=== PATIENT | male | born 1950 | race Caucasian/White ===

== ENCOUNTER 2017-07-23 15:09 | Inpatient (IN) | payer OTHER ==
[~2017-07-23] VITALS: Ht 177.8 cm; Wt 100.2 kg
[~2017-07-23 15:09] MED LIST: ASPI81EC; ATENOL/CHLOR; BLOOD PRESSURE MED?; DOC250 PO; FURO40; HYDACE5 PO; IBUPROFEN 400 MG; LEVFLO500 PO; METF500 PO; OMEGA 3; OMEP20ER PO; OXYACE5T PO; POTCHL20ER; ROSU10TA PO; RXOXYACE PO
[2017-07-23] MEDS ORDERED: GLIM4 (15:29)
[2017-07-23] MEDS ORDERED: POTCHL10ER (15:29)
[2017-07-23] MEDS ORDERED: METO50ER (15:29)
[2017-07-23] MEDS ORDERED: ATOR40TA (15:29)
[2017-07-23 15:43] LABS: BASOPHILS ABSOLUTE AUTO 0.08 K/mm3 (0.00-0.23); BASOPHILS PERCENT AUTO 1 % (0-2); EOSINOPHILS ABSOLUTE AUTO 0.39 K/mm3 (0.00-0.68); EOSINOPHILS PERCENT AUTO 4 % (0-6); Hematocrit 38.7 % (37.0-53.0); Hemoglobin 12.8 g/dL (13.5-17.5); IMMATURE GRAN ABSOLUTE AUTO 0.06 K/mm3 (0.00-0.10); IMMATURE GRAN PERCENT AUTO 1 % (0-1); LYMPHOCYTES PERCENT AUTO 31 % (21-46); MONOCYTES ABSOLUTE AUTO 0.65 K/mm3 (0.16-1.47); MONOCYTES PERCENT AUTO 6 % (4-13); Mean Corpuscular HGB 27.5 pg (26.0-34.0); Mean Corpuscular HGB Conc 33.1 g/dL (31.5-36.5); Mean Corpuscular Volume 83 fL (80-100); Mean Platelet Volume 11.1 fL (9.1-12.4); NEUTROPHILS ABSOLUTE AUTO 5.85 K/mm3 (1.96-9.15); NEUTROPHILS PERCENT AUTO 58 % (41-73); Platelet Count 270 K/mm3 (150-400); RDW Coefficient Variation 12.8 % (11.7-14.2); RDW Standard Deviation 38.5 fL (35.1-46.3); Red Blood Cell Count 4.65 M/mm3 (4.30-5.90); White Blood Cell Count 10.13 K/mm3 (4.00-11.30)
[2017-07-23 16:07] LABS: Alanine Aminotransfer (ALT/SGP 34 U/L (12-78); Albumin, Blood 4.2 g/dL (3.4-5.0); Albumin/Globulin Ratio 1.1 (0.8-1.8); Alk Phos 163 U/L (50-136); Anion Gap 10 mmol/L (6-16); Aspartate Aminotrans (AST/SGOT 16 U/L (12-37); Bilirubin, Total 0.4 mg/dL (0.1-1.0); Blood Urea Nitrogen 26 mg/dL (8-24); Bun/Creatinine Ratio 23.2 (12.0-20.0); CO2, Blood 28 mmol/L (21-32); Calcium, Blood 9.4 mg/dL (8.5-10.1); Chloride, Blood 99 mmol/L (98-108); Creatinine, Blood 1.12 mg/dL (0.60-1.20); Globulin, Blood 3.7 g/dL (2.2-4.0); Glomerular Filtration Rate >60 (60-); Glucose, Blood 156 mg/dL (70-99); Sodium, Blood 137 mmol/L (136-145); Total Protein, Blood 7.9 g/dL (6.4-8.2); Troponin I <0.015 ng/mL (0.000-0.040)
[2017-07-23 17:25] LABS: Source, Urine Clean Catch
[2017-07-23 17:33] LABS: Bilirubin, Urine Neg (Neg); Blood, Urine Neg (Neg); Glucose Qualitative, Urine Neg (Neg); Ketones, Urine Neg (Neg); Leukocyte Esterase, Urine Neg (Neg); Nitrite, Urine Neg (Neg); Protein, Urine Neg (Neg); Urobilinogen, Urine NORM (Normal)
[2017-07-23 18:02] LABS: Appearance, Urine Clear (Clear); Color, Urine Yellow (P-Yellow)
[2017-07-24 02:23] LABS: CHOL/HDL RATIO 6.6; Cholesterol 191 mg/dL (50-200); HDL Cholesterol 29 mg/dL (>39); LDL/HDL RATIO Unable to Calculate; Low Density Lipoprotein Chol Unable to Calculate mg/dL (0-110); Triglycerides 593 mg/dL (30-160); Troponin I 0.024 ng/mL (0.000-0.040); Very Low Density Lipoprot Chol Unable to Calculate mg/dL (6-32)
[2017-07-24 11:47] LABS: International Normalized Ratio 1.07; Prothrombin Time Results 11.1 Sec (9.7-11.5)
[2017-07-24 16:14] LABS: Mean Platelet Volume 10.8 fL (9.1-12.4); Platelet Count 237 K/mm3 (150-400)
[2017-12-18] MEDS ORDERED: Metoprolol Succ25 MG PO (07:50)
== END 2017-07-24 16:57 | disposition short-term general hospital (02) | DRG 287 ==
LOC: ER 15:09 → MEDS 16:46 → PCU 07-24 15:14
PROVIDERS: Emergency Medicine; Hospitalist; Internal Medicine Interventional Cardiology
PROC: 4A023N7 Measurement of Cardiac Sampling and Pressure, Left Heart, Percutaneous Approach (ICD-10-PCS; principal; 2017-07-24)
PROC: B2111ZZ Fluoroscopy of Multiple Coronary Arteries using Low Osmolar Contrast (ICD-10-PCS; 2017-07-24)
DX: I25.110 Atherosclerotic heart disease of native coronary artery with unstable angina pectoris (principal); E11.65 Type 2 diabetes mellitus with hyperglycemia; E78.1 Pure hyperglyceridemia; E78.5 Hyperlipidemia, unspecified; I10 Essential (primary) hypertension; E66.9 Obesity, unspecified; K46.9 Unspecified abdominal hernia without obstruction or gangrene; Z68.31 Body mass index [BMI] 31.0-31.9, adult
CPT/HCPCS: 36415; 71046; 80053; 80061; 81003; 82947; 83036; 83880; 84484; 85025; 85049; 85610; 85730; 93005; 93010; 93458; 99152; 99153; 99285; C1769; C1894; J1644; J1815; J2250; J3010; J7030; J7040; Q9967

== ENCOUNTER 2017-09-04 11:04 | Emergency (ER) | payer OTHER ==
[~2017-09-04] VITALS: Ht 177.8 cm; Wt 93.9 kg
[~2017-09-04 11:04] MED LIST changes: +ATOR40TA; +GLIM4; +METO50ER; +POTCHL10ER
[2017-09-04 13:26] LABS: BASOPHILS ABSOLUTE AUTO 0.08 K/mm3 (0.00-0.23); BASOPHILS PERCENT AUTO 1 % (0-2); EOSINOPHILS ABSOLUTE AUTO 0.26 K/mm3 (0.00-0.68); EOSINOPHILS PERCENT AUTO 2 % (0-6); Hematocrit 29.3 % (37.0-53.0); Hemoglobin 9.1 g/dL (13.5-17.5); IMMATURE GRAN ABSOLUTE AUTO 0.04 K/mm3 (0.00-0.10); IMMATURE GRAN PERCENT AUTO 0 % (0-1); LYMPHOCYTES ABSOLUTE AUTO 3.13 K/mm3 (0.84-5.20); LYMPHOCYTES PERCENT AUTO 27 % (21-46); MONOCYTES PERCENT AUTO 9 % (4-13); Mean Corpuscular HGB 25.6 pg (26.0-34.0); Mean Corpuscular HGB Conc 31.1 g/dL (31.5-36.5); Mean Corpuscular Volume 82 fL (80-100); Mean Platelet Volume 11.1 fL (9.1-12.4); NEUTROPHILS ABSOLUTE AUTO 7.29 K/mm3 (1.96-9.15); NEUTROPHILS PERCENT AUTO 62 % (41-73); Platelet Count 426 K/mm3 (150-400); RDW Coefficient Variation 16.1 % (11.7-14.2); RDW Standard Deviation 49.3 fL (35.1-46.3); Red Blood Cell Count 3.56 M/mm3 (4.30-5.90)
[2017-09-04 13:47] LABS: Anion Gap 7 mmol/L (6-16); Blood Urea Nitrogen 12 mg/dL (8-24); Bun/Creatinine Ratio 13.3 (12.0-20.0); CO2, Blood 34 mmol/L (21-32); Calcium, Blood 8.5 mg/dL (8.5-10.1); Chloride, Blood 95 mmol/L (98-108); Glomerular Filtration Rate >60 (60-); Glucose, Blood 96 mg/dL (70-99); Magnesium, Blood 1.5 mg/dL (1.6-2.4); Potassium, Blood 3.3 mmol/L (3.5-5.5); Sodium, Blood 136 mmol/L (136-145)
[2017-09-04] MEDS ORDERED: Toprol Xl50 MG PO (14:52)
[2017-09-04] MEDS ORDERED: Percocet 5-3251 EACH PO (14:52)
== END 2017-09-04 16:00 | disposition home or self-care (01) ==
LOC: ER 11:04
PROVIDERS: Emergency Medicine
DX: S16.1XXA Strain of muscle, fascia and tendon at neck level, initial encounter (principal); I48.91 Unspecified atrial fibrillation; E87.6 Hypokalemia; E83.42 Hypomagnesemia; I10 Essential (primary) hypertension; E11.9 Type 2 diabetes mellitus without complications; E78.5 Hyperlipidemia, unspecified; Z88.8 Allergy status to other drugs, medicaments and biological substances; Z79.899 Other long term (current) drug therapy; Z79.84 Long term (current) use of oral hypoglycemic drugs; W01.198A Fall on same level from slipping, tripping and stumbling with subsequent striking against other object, initial encounter
CPT/HCPCS: 72040; 80048; 83735; 85025; 93005; 93010; 96365; 99284; J3475

== ENCOUNTER 2017-09-08 13:46 | Observation (INO) | payer OTHER ==
[~2017-09-08] VITALS: Ht 172.7 cm; Wt 93.2 kg
[~2017-09-08 13:46] MED LIST changes: +Percocet 5-3251 EACH PO; +Toprol Xl50 MG PO
[2017-09-08 14:52] LABS: BASOPHILS ABSOLUTE AUTO 0.11 K/mm3 (0.00-0.23); BASOPHILS PERCENT AUTO 1 % (0-2); EOSINOPHILS ABSOLUTE AUTO 0.42 K/mm3 (0.00-0.68); EOSINOPHILS PERCENT AUTO 4 % (0-6); Hematocrit 33.5 % (37.0-53.0); Hemoglobin 10.1 g/dL (13.5-17.5); IMMATURE GRAN ABSOLUTE AUTO 0.04 K/mm3 (0.00-0.10); IMMATURE GRAN PERCENT AUTO 0 % (0-1); LYMPHOCYTES ABSOLUTE AUTO 3.08 K/mm3 (0.84-5.20); LYMPHOCYTES PERCENT AUTO 32 % (21-46); MONOCYTES PERCENT AUTO 7 % (4-13); Mean Corpuscular HGB Conc 30.1 g/dL (31.5-36.5); Mean Corpuscular Volume 83 fL (80-100); Mean Platelet Volume 10.4 fL (9.1-12.4); NEUTROPHILS ABSOLUTE AUTO 5.19 K/mm3 (1.96-9.15); NEUTROPHILS PERCENT AUTO 54 % (41-73); Platelet Count 485 K/mm3 (150-400); RDW Coefficient Variation 16.1 % (11.7-14.2); RDW Standard Deviation 49.1 fL (35.1-46.3); Red Blood Cell Count 4.04 M/mm3 (4.30-5.90); White Blood Cell Count 9.54 K/mm3 (4.00-11.30)
[2017-09-08 15:20] LABS: Alanine Aminotransfer (ALT/SGP 30 U/L (12-78); Albumin, Blood 3.1 g/dL (3.4-5.0); Albumin/Globulin Ratio 0.6 (0.8-1.8); Alk Phos 271 U/L (50-136); Anion Gap 10 mmol/L (6-16); Aspartate Aminotrans (AST/SGOT 22 U/L (12-37); Bilirubin, Total 0.5 mg/dL (0.1-1.0); Blood Urea Nitrogen 20 mg/dL (8-24); Bun/Creatinine Ratio 19.4 (12.0-20.0); CO2, Blood 30 mmol/L (21-32); Chloride, Blood 98 mmol/L (98-108); Creatinine, Blood 1.03 mg/dL (0.60-1.20); Globulin, Blood 5.3 g/dL (2.2-4.0); Glomerular Filtration Rate >60 (60-); Glucose, Blood 94 mg/dL (70-99); Potassium, Blood 3.8 mmol/L (3.5-5.5); Sodium, Blood 138 mmol/L (136-145); Total Protein, Blood 8.4 g/dL (6.4-8.2)
[2017-09-08 15:38] LABS: Digoxin (Lanoxin) 0.81 ug/mL (0.80-2.00); Troponin I 0.044 ng/mL (0.000-0.040)
[2017-09-08] MEDS ORDERED: ASPI81CH PO (17:16)
[2017-09-08] MEDS ORDERED: SENN187 PO (17:16)
[2017-09-08] MEDS ORDERED: PANT40 PO (17:16)
[2017-09-08] MEDS ORDERED: METF500 PO (17:18)
[2017-09-08] MEDS ORDERED: ELIQUIS5 MG PO (17:18)
[2017-09-08] MEDS ORDERED: FURO20 PO (17:18)
[2017-09-08] MEDS ORDERED: OXYC5 (17:21)
[2017-09-08] MEDS ORDERED: GABA400 PO (17:22)
[2017-09-08] MEDS ORDERED: ATORVASTATIN CA40 MG PO (17:22)
[2017-09-08] MEDS ORDERED: GLIM4 PO (17:22)
[2017-09-08] MEDS ORDERED: DIGOX125 MCG PO (17:23)
[2017-09-08] MEDS ORDERED: GUAI600T33 PO (17:23)
[2017-09-08] MEDS ORDERED: METO50ER PO (20:49)
[2017-09-08] MEDS ORDERED: Omeprazole20 M1 (20:54)
[2017-09-08] MEDS ORDERED: POTCHL10ER PO (20:55)
[2017-09-09] MEDS ORDERED: DILTIAZEM 24HR240 M1 PO (16:42)
== END 2017-09-09 17:25 | disposition home or self-care (01) ==
LOC: ER 13:46 → MEDS 13:47
PROVIDERS: Emergency Medicine
DX: I48.91 Unspecified atrial fibrillation (principal); I95.9 Hypotension, unspecified; I10 Essential (primary) hypertension; E11.65 Type 2 diabetes mellitus with hyperglycemia; E78.00 Pure hypercholesterolemia, unspecified; I25.10 Atherosclerotic heart disease of native coronary artery without angina pectoris; Z79.84 Long term (current) use of oral hypoglycemic drugs; Z88.8 Allergy status to other drugs, medicaments and biological substances; Z79.01 Long term (current) use of anticoagulants; Z95.1 Presence of aortocoronary bypass graft; Z79.82 Long term (current) use of aspirin; Z79.899 Other long term (current) drug therapy
CPT/HCPCS: 36415; 71046; 80053; 80162; 82947; 83880; 84484; 85025; 93005; 93010; 96374; 99285; G0378

== ENCOUNTER 2017-11-27 06:52 | Day surgery (SDC) | payer OTHER ==
[~2017-11-27] VITALS: Ht 177.8 cm; Wt 95.5 kg
[~2017-11-27 06:52] MED LIST changes: +ASPI81CH PO; +ATORVASTATIN CA40 MG PO; +DIGOX125 MCG PO; +DILTIAZEM 24HR240 M1 PO; +ELIQUIS5 MG PO; +FURO20 PO; +GABA400 PO; +GLIM4 PO; +GUAI600T33 PO; +METO50ER PO; +OXYC5; +Omeprazole20 M1; +PANT40 PO; +POTCHL10ER PO; +SENN187 PO
== END 2017-11-27 10:58 | disposition home or self-care (01) ==
LOC: ORSCSDS 06:52
PROVIDERS: Podiatrist Foot & Ankle Surgery
PROC: 0Y6Q0Z2 Detachment at Left 1st Toe, Mid, Open Approach (ICD-10-PCS; principal; 2017-11-27 08:30)
PROC: 0Y6M0Z4 Detachment at Right Foot, Complete 1st Ray, Open Approach (ICD-10-PCS; principal; 2017-11-27 08:30)
PROC: 0Y6N0Z6 Detachment at Left Foot, Complete 3rd Ray, Open Approach (ICD-10-PCS; principal; 2017-11-27 08:30)
PROC: 0Y6M0Z7 Detachment at Right Foot, Complete 4th Ray, Open Approach (ICD-10-PCS; principal; 2017-11-27 08:30)
DX: I96 Gangrene, not elsewhere classified (principal); L97.528 Non-pressure chronic ulcer of other part of left foot with other specified severity; L97.518 Non-pressure chronic ulcer of other part of right foot with other specified severity; M86.171 Other acute osteomyelitis, right ankle and foot; M86.172 Other acute osteomyelitis, left ankle and foot; L97.509 Non-pressure chronic ulcer of other part of unspecified foot with unspecified severity; I10 Essential (primary) hypertension; E78.5 Hyperlipidemia, unspecified; I25.10 Atherosclerotic heart disease of native coronary artery without angina pectoris; Z87.891 Personal history of nicotine dependence; E10.40 Type 1 diabetes mellitus with diabetic neuropathy, unspecified; Z79.01 Long term (current) use of anticoagulants; Z79.82 Long term (current) use of aspirin; Z79.84 Long term (current) use of oral hypoglycemic drugs; Z79.899 Other long term (current) drug therapy
CPT/HCPCS: 82947; J0690; J2250; J2405; J3010; J7120

== ENCOUNTER → 2018-07-14 | Outpatient (CLI) | payer OTHER ==
[~2018-07-14] MED LIST changes: +Metoprolol Succ25 MG PO
[2018-07-14 13:59] LABS: Anion Gap 8 mmol/L (6-16); Blood Urea Nitrogen 23 mg/dL (8-24); Bun/Creatinine Ratio 20.2 (12.0-20.0); CO2, Blood 30 mmol/L (21-32); Calcium, Blood 9.6 mg/dL (8.5-10.1); Chloride, Blood 103 mmol/L (98-108); Creatinine, Blood 1.14 mg/dL (0.60-1.20); Glomerular Filtration Rate >60 (60-); Glucose, Blood 122 mg/dL (70-99); Potassium, Blood 4.2 mmol/L (3.5-5.5); Sodium, Blood 141 mmol/L (136-145)
== END | disposition home or self-care (01) ==
LOC: LAB SHORT 13:13 → LAB 13:13
PROVIDERS: Hospitalist
DX: I10 Essential (primary) hypertension (principal)
CPT/HCPCS: 80048

== ENCOUNTER → 2019-05-07 | Outpatient (CLI) | payer OTHER ==
[2019-05-07 16:30] LABS: Cholesterol 220 mg/dL (50-200); HDL Cholesterol 44 mg/dL (>39); LDL/HDL RATIO Unable to Calculate; Low Density Lipoprotein Chol Unable to Calculate mg/dL (0-110); Triglycerides 510 mg/dL (30-160); Very Low Density Lipoprot Chol Unable to Calculate mg/dL (6-32)
== END ==
LOC: LAB 11:42 → LAB SHORT 11:42
PROVIDERS: Hospitalist
DX: E11.65 Type 2 diabetes mellitus with hyperglycemia (principal)
CPT/HCPCS: 80061; 82043; 83036

== ENCOUNTER → 2020-11-22 | Outpatient (CLI) | payer OTHER | END | disposition home or self-care (01) | LOC: LAB SHORT 15:50 | DX: E78.5 Hyperlipidemia, unspecified (principal) | CPT/HCPCS: 82043 ==

== ENCOUNTER 2022-05-22 21:49 | Inpatient (IN) | payer OTHER ==
[~2022-05-22] VITALS: Ht 172.7 cm; Wt 104.0 kg
[~2022-05-22 21:49] MED LIST changes: -Metoprolol Succ25 MG PO; +POTA10T PO; -POTCHL10ER PO
[2022-05-22 22:11] LABS: BASOPHILS ABSOLUTE AUTO 0.09 K/mm3 (0.00-0.23); BASOPHILS PERCENT AUTO 1 % (0-2); EOSINOPHILS ABSOLUTE AUTO 0.43 K/mm3 (0.00-0.68); EOSINOPHILS PERCENT AUTO 5 % (0-6); Hematocrit 33.4 % (37.0-53.0); Hemoglobin 11.2 g/dL (13.5-17.5); IMMATURE GRAN ABSOLUTE AUTO 0.05 K/mm3 (0.00-0.10); IMMATURE GRAN PERCENT AUTO 1 % (0-1); LYMPHOCYTES ABSOLUTE AUTO 3.45 K/mm3 (0.84-5.20); LYMPHOCYTES PERCENT AUTO 38 % (21-46); MONOCYTES ABSOLUTE AUTO 0.73 K/mm3 (0.16-1.47); MONOCYTES PERCENT AUTO 8 % (4-13); Mean Corpuscular HGB 28.5 pg (26.0-34.0); Mean Corpuscular HGB Conc 33.5 g/dL (31.5-36.5); Mean Corpuscular Volume 85 fL (80-100); Mean Platelet Volume 11.8 fL (9.1-12.4); NEUTROPHILS ABSOLUTE AUTO 4.38 K/mm3 (1.96-9.15); NEUTROPHILS PERCENT AUTO 48 % (41-73); Platelet Count 267 K/mm3 (150-400); RDW Coefficient Variation 13.2 % (11.7-14.2); RDW Standard Deviation 41.4 fL (35.1-46.3); Red Blood Cell Count 3.93 M/mm3 (4.30-5.90); White Blood Cell Count 9.13 K/mm3 (4.00-11.30)
[2022-05-22 22:36] LABS: Albumin, Blood 3.7 g/dL (3.4-5.0); Bilirubin, Total 0.2 mg/dL (0.1-1.0); Bun/Creatinine Ratio 13.7 (12.0-20.0); Calcium, Blood 8.8 mg/dL (8.5-10.1); Creatinine, Blood 1.68 mg/dL (0.60-1.20); Globulin, Blood 3.6 g/dL (2.2-4.0); Potassium, Blood 4.2 mmol/L (3.5-5.5); Total Protein, Blood 7.3 g/dL (6.4-8.2)
[2022-05-22] MEDS ORDERED: TRULANCE3 MG PO (22:56)
[2022-05-23 02:48] LABS: Cholesterol 192 mg/dL (50-200); HDL Cholesterol 32 mg/dL (>39); LDL/HDL RATIO Unable to Calculate; Low Density Lipoprotein Chol Unable to Calculate mg/dL (0-110); Triglycerides 491 mg/dL (30-160); Very Low Density Lipoprot Chol Unable to Calculate mg/dL (6-32)
[2022-05-23 03:31] LABS: Anti-Xa UFH, PHA Monitoring <0.10 IU/mL; International Normalized Ratio 1.05
--- NOTE | 2022-05-23 04:16 | NUR ---
TRANSFER NOTE/PATIENT UPDATE REPORT TAKEN VIA PHONE FROM FRED MACK IN THE ED. PATIENT TRANSFERRED TO U 15 AT 0225. PATIENT WAS ABLE TO TRANSFER VIA SBA TO BED FROM [facility]. PATIENT DENIES CHEST PAIN/PRESSURE AND STATES HE IS NOT HAVING ANY PAIN. MOST RECENT TROPONIN OF 1387. PATIENT DENIES SOB; CLEAR LUNG SOUNDS AUSCULTATED THROUGHOUT. PATIENT SHOWING ATRIAL FLUTTER/FIBRILLATION ON THE MONITOR WITH HR 80-100; PATIENT REPORTS HISTORY OF GOING IN/OUT OF AFIB; DENIES FEELINGS OF PALPATION. BP STABLE. AFEBRILE. ON RA WITH SPO2 >94%. PATIENT REPORTS HISTORY OF ALLERGY TO [facility]. MD PAULINO WITH NEW ORDERS FOR BIVALIRUDIN INFUSION. PATIENT REMAINS NPO. CALLING APPROPRIATELY AND ABLE TO MAKE NEEDS KNOWN; THIS RN WILL CONTINUE TO MONITOR AND PROVIDE INTERVENTIONS NEEDED/ORDERED UNTIL SHIFT CHANGE AT 0700.
[2022-05-23 05:09] LABS: BASOPHILS ABSOLUTE AUTO 0.09 K/mm3 (0.00-0.23); BASOPHILS PERCENT AUTO 1 % (0-2); EOSINOPHILS PERCENT AUTO 5 % (0-6); Hematocrit 30.2 % (37.0-53.0); Hemoglobin 10.1 g/dL (13.5-17.5); IMMATURE GRAN ABSOLUTE AUTO 0.05 K/mm3 (0.00-0.10); IMMATURE GRAN PERCENT AUTO 1 % (0-1); LYMPHOCYTES ABSOLUTE AUTO 3.18 K/mm3 (0.84-5.20); LYMPHOCYTES PERCENT AUTO 37 % (21-46); MONOCYTES ABSOLUTE AUTO 0.78 K/mm3 (0.16-1.47); MONOCYTES PERCENT AUTO 9 % (4-13); Mean Corpuscular HGB 28.2 pg (26.0-34.0); Mean Corpuscular HGB Conc 33.4 g/dL (31.5-36.5); Mean Corpuscular Volume 84 fL (80-100); Mean Platelet Volume 11.7 fL (9.1-12.4); NEUTROPHILS ABSOLUTE AUTO 4.05 K/mm3 (1.96-9.15); NEUTROPHILS PERCENT AUTO 47 % (41-73); Platelet Count 222 K/mm3 (150-400); RDW Coefficient Variation 13.3 % (11.7-14.2); RDW Standard Deviation 41.2 fL (35.1-46.3); Red Blood Cell Count 3.58 M/mm3 (4.30-5.90); White Blood Cell Count 8.55 K/mm3 (4.00-11.30)
[2022-05-23 05:36] LABS: Bun/Creatinine Ratio 15.7 (12.0-20.0); Calcium, Blood 8.6 mg/dL (8.5-10.1); Creatinine, Blood 1.34 mg/dL (0.60-1.20); Potassium, Blood 4.1 mmol/L (3.5-5.5)
--- NOTE | 2022-05-23 16:37 | NUR ---
SHIFT SUMMARY PT DENIES CP OR SOB THIS SHIFT. PT TO BE NPO AT MIDNIGHT AND TO HAVE ANGIOGRAM IN THE AM. ANGIOMAX TO BE STOPPED AT MIDNIGHT WELL AND LASIX IS TO BE HELD IN THE AM. PT A/O X4; PLEASANT AND COOPERATIVE WITH CARE.
--- NOTE | 2022-05-23 20:15 | NUR ---
ASSUMPTION OF CARE THIS RN ASSUMED CARE OF PATIENT AT 1900. REPORT TAKEN FROM PJ MACK. PATIENT CONTINUES TO BE IN AFLUTTER WITH HR 70-90S. BP STABLE. AFEBRILE. SPO2 >94% ON RA. PATIENT DENIES CHEST PAIN/PRESSURE AND SOB. ANGIOMAX INFUSING PER EMAR INTO RAC IV; ORDERS TO TURN OFF AT MIDNIGHT ALONG WITH BECOMING NPO AT MIDNIGHT. PATIENT UNDERSTANDS PLAN OF CARE. PATIENT IS ABLE TO MAKE HIS NEEDS KNOWN AND IS INDEPENDENT WITH ADL'S. THIS RN WILL REVIEW CHART AND CONTINUE TO MONITOR AND PROVIDE INTEREVENTIONS NEEDED/ORDERED.
--- NOTE | 2022-05-24 04:46 | NUR ---
SHIFT SUMMARY NO ACUTE CHANGES OVERNIGHT. ANGIOMAX INFUSION STOPPED AT 0000 PER ORDER FOR ANGIO THIS AM. PATIENT HAS BEEN NPO SINCE MIDNIGHT WELL. AFLUTTER NOTED ON MONITOR WITH HR 70-100'S. AFEBRILE. BP STABLE. ON RA WITH SPO2 >94%. DENIES CHEST PAIN/PRESSURE. NO FURTHER CHANGES SINCE PREVIOUS NOTE. SEE ASSESSMENT. PATIENT IS ABLE TO MAKE NEEDS KNOWN. PATIENT IS INDEPENDENT WITH ADL'S AND CAN REPOSITION SELF IN BED. BED IN LOWEST POSITION AND CALL LIGHT WITHIN REACH. THIS RN WILL CONTINUE TO MONITOR PATIENT UNTIL SHIFT CHANGE AT 0700.
--- NOTE | 2022-05-24 10:16 | NUR ---
CARE ASSUMPTION THIS RN ASSUMED CARE AT 0700. VSS. TELE AFLUTTER 100S. PATIENT IS ALERT AND ORIENTED X4. PATIENT REPORTS NO PAIN, NO CHEST PAIN/PRESSURE, OR SHORTNESS OF BREATH. PATIENT IS ABLE TO VOID. PATIENT SKIN IS CLEAN DRY AND INTACT. PATIENT WENT TO ANGIO THIS AM AND HAS RIGHT FEMORAL ACCESS SITE. SITE IS NONTENDER, CLEAN DRY AND INTACT. PATIENT UPDATED ON PLAN OF CARE POST ANGIO AND EDUCATED ON RESTRICTIONS AFTER PROCEDURE. PLAN OF CARE UP TO DATE. SEE SHIFT ASSESSMENT FOR FURTHER DETIALS. PATIENT IS ABLE TO EAT NOW. PATIENT IN ROOM LYING FLAT. CALL LIGHT WITHIN REACH AND BED IN LOWEST POSITION. PLAN IS RESTART ELIQUIS 05/25/22, CAN DISCHARGE 05/25, START IMDUR, AND FOLLOW UP WITH CARDIOLOGY 4 WEEKS POST DISCHARGE PER MD BARKER.
--- NOTE | 2022-05-24 17:23 | NUR ---
SHIFT SUMMARY PATIENT NEURO REMAINS INTACT. VSS. TELE AFLUTTER 80-90S. PATIENT RIGHT FEMORAL SITE IS CLEAN DRY INTACT, NO BLEEDING TENDERNESS OR HEMATOMA. PATIENT HAS GOTTEN UP TO USE THE BATHROOM AFTER DESIGNATED TIME TO STAY IN BED, AND THE SITE REMAINS CLEAN DRY AND INTACT. PATIENT IS INDEPDENT BUT THIS RN HAS BEEN STAND BY DUE TO PROCEDURE THIS AM. PATIENT USES CALL LIGHT APPROPIATELY. PATIENT REPROTS NO PAIN, CHEST PAIN, OR SHORTNESS OF BREATH. PATIENT ASSESSMENT REMAINS UNCHANGED FROM THIS MORNING. NO ACUTE CHANGES. CALL LIGHT WITHIN REACH AND BED IN LOWEST POSITION. WILL CONTINUE TO MONITOR AND PROVIDE CARE UNTIL HAND OFF WITH NEXT SHIFT.
--- NOTE | 2022-05-24 20:28 | NUR ---
ASSUMPTION OF CARE THIS RN ASSUMED CARE OF PATIENT AT 1900. REPORT TAKEN FROM YANIV MACK. PATIENT'S RIGHT FEMORAL ANGIO SITE FULLY RECOVERED. NO NOTED SWELLING, DISCOLORATION, BLEEDING/OOZING, OR TENDERNESS WITH PALPATION. DRESSING IS C/D/I. NO DISCOLORATION ON BACK OR BACK PAIN REPORTED. PATIENT CONTINUES TO BE IN AFLUTTER WITH HR 90-100'S. DENIES CHEST PAIN/PRESSURE. BP STABLE. ON RA WITH SPO2 >94%. AFEBRILE. PATIENT IS ALERT AND ORIENTED FULLY. ABLE TO MAKE NEEDS KNOWN. INDEPENDENT WITH ADL'S. BED IN LOWEST POSITION AND CALL LIGHT WITHIN REACH. THIS RN WILL REVIEW CHART AND CONTINUE TO MONITOR AND PROVIDE INTERVENTIONS NEEDED/ORDERED.
[2022-05-25 04:39] LABS: BASOPHILS ABSOLUTE AUTO 0.06 K/mm3 (0.00-0.23); BASOPHILS PERCENT AUTO 1 % (0-2); EOSINOPHILS ABSOLUTE AUTO 0.37 K/mm3 (0.00-0.68); EOSINOPHILS PERCENT AUTO 4 % (0-6); Hematocrit 31.2 % (37.0-53.0); Hemoglobin 10.5 g/dL (13.5-17.5); IMMATURE GRAN ABSOLUTE AUTO 0.06 K/mm3 (0.00-0.10); IMMATURE GRAN PERCENT AUTO 1 % (0-1); LYMPHOCYTES ABSOLUTE AUTO 3.06 K/mm3 (0.84-5.20); LYMPHOCYTES PERCENT AUTO 30 % (21-46); MONOCYTES ABSOLUTE AUTO 0.79 K/mm3 (0.16-1.47); MONOCYTES PERCENT AUTO 8 % (4-13); Mean Corpuscular HGB 28.5 pg (26.0-34.0); Mean Corpuscular HGB Conc 33.7 g/dL (31.5-36.5); Mean Corpuscular Volume 85 fL (80-100); NEUTROPHILS ABSOLUTE AUTO 5.92 K/mm3 (1.96-9.15); NEUTROPHILS PERCENT AUTO 58 % (41-73); Platelet Count 239 K/mm3 (150-400); RDW Coefficient Variation 13.5 % (11.7-14.2); RDW Standard Deviation 41.4 fL (35.1-46.3); Red Blood Cell Count 3.69 M/mm3 (4.30-5.90); White Blood Cell Count 10.26 K/mm3 (4.00-11.30)
--- NOTE | 2022-05-25 04:42 | NUR ---
SHIFT SUMMARY NO ACUTE CHANGES OVERNIGHT. PATIENT CONTINUES TO BE IN AFIB WITH HR 90-100'S. BP STABLE. AFEBRILE. ON RA WITH SPO2 >94%. PATIENT DENIES CHEST PAIN AND PRESSURE. PATIENT DOES STATE THAT THE LATERAL ASPECT OF HIS LEFT CHEST AT THE AXILLARY LINE FEELS SORE WHERE HE STATES THAT THE CORKING MACHINE OPERATOR "PUSHED HARD" FOR HIS ECHO PREVIOUSLY. RIGHT FEMORAL ANGIO SITE IS FULLY RECOVERED WITH NO BLEEDING, DISCOLORATION, SWELLING, OR TENDERNESS NOTED. THIS RN ATTEMPTED TO EDUCATE PATIENT ON DIETARY CHOICES, HOWEVER, PATIENT APPEARS RESISTANT TO CHANGE DIET THAT INCLUDES HIGH SODIUM AND FOODS CONTAINING HIGH SATURATED FAT. THIS RN WILL CONTINUE TO REINFORCE EDUCATION PATIENT ALLOWS. PATIENT IS INDEPENDENT WITH ADL'S AND IS ABLE TO MAKE NEEDS KNOWN. SEE ASSESSMENT. BED IN LOWEST POSITION AND CALL LIGHT WITHIN REACH. THIS RN WILL CONTINUE TO MONITOR UNTIL SHIFT CHANGE AT 0700.
[2022-05-25 05:01] LABS: Bun/Creatinine Ratio 20.1 (12.0-20.0); Calcium, Blood 8.7 mg/dL (8.5-10.1); Creatinine, Blood 1.39 mg/dL (0.60-1.20); Potassium, Blood 4.1 mmol/L (3.5-5.5)
[2022-05-25] MEDS ORDERED: Acetaminophen325 M1 PO (10:26)
[2022-05-25] MEDS ORDERED: ATOR80 PO (10:27)
[2022-05-25] MEDS ORDERED: NITR.4SL SL (10:28)
[2022-05-25] MEDS ORDERED: Isosorbide Mono30 MG PO (10:28)
--- NOTE | 2022-05-25 13:24 | NUR ---
DISCHARGE SUMMARY: PATIENT IS ALERT AND ORIENTED, NO SIGN OF ACUTE DISTRESS, PATIENT EDUCATED ON CURRENLTY ILLNESS AND DISCHARGE PLAN, PATIENT IN AGREEANCE WITH NO CONCERNS AT THIS TIME. TIN POT OPERATOR FAXED MEDS TO PRREFERRED PHARM. PATIENT AMBULATORY WITH KNOWLEDGE OF THE HOSPITAL NO CONCERNS FROM THIS RN AT TIME OF DISCHARGE. PATIENT DENIES CHEST PAIN/PRESSURE OR SOB. EDCUATED ON MEDICATIONS, CURRENT AND NEW MEDICATIONS. PATIENT RECEPTIVE TO TEACHING. PATIENT WAS PICKED UP BY VIA POV. NO CONCERNS AT TIME OF DISCHARGE FROM PATIENT OR THIS RN.
== END 2022-05-25 12:40 | disposition home or self-care (01) | DRG 281 ==
LOC: ER 21:49 → PCU 05-23 02:09
PROVIDERS: Internal Medicine; Physician Assistant; ADMIT Family Medicine
PROC: 4A023N7 Measurement of Cardiac Sampling and Pressure, Left Heart, Percutaneous Approach (ICD-10-PCS; principal; 2022-05-24)
PROC: B215YZZ Fluoroscopy of Left Heart using Other Contrast (ICD-10-PCS; 2022-05-24)
PROC: B211YZZ Fluoroscopy of Multiple Coronary Arteries using Other Contrast (ICD-10-PCS; 2022-05-24)
PROC: B218YZZ Fluoroscopy of Left Internal Mammary Bypass Graft using Other Contrast (ICD-10-PCS; 2022-05-24)
PROC: B213YZZ Fluoroscopy of Multiple Coronary Artery Bypass Grafts using Other Contrast (ICD-10-PCS; 2022-05-24)
PROC: B24BZZ3 Ultrasonography of Heart with Aorta, Intravascular (ICD-10-PCS; 2022-05-24)
DX: I21.4 Non-ST elevation (NSTEMI) myocardial infarction (principal); I48.20 Chronic atrial fibrillation, unspecified; N17.9 Acute kidney failure, unspecified; E11.65 Type 2 diabetes mellitus with hyperglycemia; Z28.21 Immunization not carried out because of patient refusal; E78.5 Hyperlipidemia, unspecified; E11.40 Type 2 diabetes mellitus with diabetic neuropathy, unspecified; I12.9 Hypertensive chronic kidney disease with stage 1 through stage 4 chronic kidney disease, or unspecified chronic kidney disease; N18.30 Chronic kidney disease, stage 3 unspecified; E11.22 Type 2 diabetes mellitus with diabetic chronic kidney disease; I25.10 Atherosclerotic heart disease of native coronary artery without angina pectoris; Z87.891 Personal history of nicotine dependence; Z86.711 Personal history of pulmonary embolism; Z95.1 Presence of aortocoronary bypass graft; Z98.890 Other specified postprocedural states; Z89.422 Acquired absence of other left toe(s); Z89.421 Acquired absence of other right toe(s); Z88.8 Allergy status to other drugs, medicaments and biological substances; Z79.01 Long term (current) use of anticoagulants; Z79.82 Long term (current) use of aspirin; Z79.899 Other long term (current) drug therapy
CPT/HCPCS: 36415; 71046; 71260; 76937; 80048; 80053; 80061; 82947; 83036; 83880; 84484; 85025; 85520; 85610; 85730; 93005; 93010; 93306; 93459; 99152; 99153; 99285-25; A9270; C1760; C1769; C1894; J0583; J1815; J2250; J3010; J7030; J7040; Q9967

== ENCOUNTER → 2022-06-06 | Outpatient (CLI) | payer OTHER ==
[~2022-06-06] MED LIST changes: +ATOR80 PO; +Acetaminophen325 M1 PO; +Isosorbide Mono30 MG PO; +NITR.4SL SL; +TRULANCE3 MG PO
[2022-06-06 19:11] LABS: BASOPHILS ABSOLUTE AUTO 0.08 K/mm3 (0.00-0.23); BASOPHILS PERCENT AUTO 1 % (0-2); EOSINOPHILS ABSOLUTE AUTO 0.38 K/mm3 (0.00-0.68); EOSINOPHILS PERCENT AUTO 4 % (0-6); Hematocrit 32.3 % (37.0-53.0); Hemoglobin 10.8 g/dL (13.5-17.5); IMMATURE GRAN ABSOLUTE AUTO 0.04 K/mm3 (0.00-0.10); IMMATURE GRAN PERCENT AUTO 0 % (0-1); LYMPHOCYTES ABSOLUTE AUTO 3.17 K/mm3 (0.84-5.20); LYMPHOCYTES PERCENT AUTO 32 % (21-46); MONOCYTES ABSOLUTE AUTO 0.66 K/mm3 (0.16-1.47); MONOCYTES PERCENT AUTO 7 % (4-13); Mean Corpuscular HGB 28.2 pg (26.0-34.0); Mean Corpuscular HGB Conc 33.4 g/dL (31.5-36.5); Mean Corpuscular Volume 84 fL (80-100); Mean Platelet Volume 12.5 fL (9.1-12.4); NEUTROPHILS ABSOLUTE AUTO 5.54 K/mm3 (1.96-9.15); NEUTROPHILS PERCENT AUTO 56 % (41-73); Platelet Count 284 K/mm3 (150-400); RDW Coefficient Variation 13.2 % (11.7-14.2); RDW Standard Deviation 40.5 fL (35.1-46.3); Red Blood Cell Count 3.83 M/mm3 (4.30-5.90); White Blood Cell Count 9.87 K/mm3 (4.00-11.30)
[2022-06-06 20:57] LABS: Calcium, Blood 9.3 mg/dL (8.5-10.1); Creatinine, Blood 1.45 mg/dL (0.60-1.20); Potassium, Blood 4.1 mmol/L (3.5-5.5)
== END | disposition home or self-care (01) ==
LOC: LAB SHORT 17:45
PROVIDERS: Hospitalist
DX: N18.32 Chronic kidney disease, stage 3b (principal); D63.1 Anemia in chronic kidney disease
CPT/HCPCS: 80048; 85025

== ENCOUNTER → 2022-12-12 | Outpatient (CLI) | payer OTHER ==
[2022-12-12 17:59] LABS: BASOPHILS ABSOLUTE AUTO 0.08 K/mm3 (0.00-0.23); BASOPHILS PERCENT AUTO 1 % (0-2); EOSINOPHILS ABSOLUTE AUTO 0.43 K/mm3 (0.00-0.68); EOSINOPHILS PERCENT AUTO 5 % (0-6); Hematocrit 25.5 % (37.0-53.0); Hemoglobin 7.6 g/dL (13.5-17.5); IMMATURE GRAN ABSOLUTE AUTO 0.03 K/mm3 (0.00-0.10); IMMATURE GRAN PERCENT AUTO 0 % (0-1); LYMPHOCYTES ABSOLUTE AUTO 2.54 K/mm3 (0.84-5.20); LYMPHOCYTES PERCENT AUTO 29 % (21-46); MONOCYTES ABSOLUTE AUTO 0.63 K/mm3 (0.16-1.47); MONOCYTES PERCENT AUTO 7 % (4-13); Mean Corpuscular HGB 22.8 pg (26.0-34.0); Mean Corpuscular HGB Conc 29.8 g/dL (31.5-36.5); Mean Corpuscular Volume 77 fL (80-100); Mean Platelet Volume 12.2 fL (9.1-12.4); NEUTROPHILS ABSOLUTE AUTO 5.17 K/mm3 (1.96-9.15); NEUTROPHILS PERCENT AUTO 58 % (41-73); Platelet Count 296 K/mm3 (150-400); RDW Coefficient Variation 15.7 % (11.7-14.2); RDW Standard Deviation 43.2 fL (35.1-46.3); Red Blood Cell Count 3.33 M/mm3 (4.30-5.90); White Blood Cell Count 8.88 K/mm3 (4.00-11.30)
[2022-12-12 18:13] LABS: Calcium, Blood 9.2 mg/dL (8.5-10.1); Creatinine, Blood 1.35 mg/dL (0.60-1.20); Potassium, Blood 4.4 mmol/L (3.5-5.5)
== END | disposition home or self-care (01) ==
LOC: LAB SHORT 17:31 → LAB 17:31
PROVIDERS: Hospitalist
DX: I12.9 Hypertensive chronic kidney disease with stage 1 through stage 4 chronic kidney disease, or unspecified chronic kidney disease (principal); N18.9 Chronic kidney disease, unspecified; D63.1 Anemia in chronic kidney disease
CPT/HCPCS: 80048; 85025

== ENCOUNTER → 2023-06-12 | Outpatient (CLI) | payer OTHER ==
[2023-06-12 14:40] LABS: Creatinine, Urine Random 32.3 mg/dL (27.00-270.00)
[2023-06-12 14:43] LABS: Microalb/Creat Ratio UR, Rand 92.26 mg/g (0.000-30.000); Microalbumin, Random Urine 29.8 mg/L (0.000-20.000)
== END ==
LOC: LAB SHORT 12:27 → LAB 12:27
PROVIDERS: Hospitalist
DX: E11.22 Type 2 diabetes mellitus with diabetic chronic kidney disease (principal)
CPT/HCPCS: 82043; 82570

== ENCOUNTER 2023-09-24 06:42 | Day surgery (SDC) | payer OTHER ==
[~2023-09-24] VITALS: Ht 177.8 cm; Wt 100.0 kg
[2023-09-24] VITALS (7 sets, daily range): BP systolic 136–163; BP diastolic 74–105
[~2023-09-24 06:42] MED LIST changes: +FERSU300 PO; +FURO40 PO; +JARDIANCE10 MG PO; +NITROGLYCERIN
[2023-09-24] MEDS ORDERED: NiCARdipine HCL 1,000 MCG/5 ML SYR ONE (07:38)
[2023-09-24] MEDS ORDERED: NS 1,000 ML IV ONE (07:38)
[2023-09-24] MEDS ORDERED: NS 250 ML IV ONE (07:38)
[2023-09-24] MEDS ORDERED: Nitroglycerin 2 MG/20 ML BTL ONE (07:38)
[2023-09-24] MEDS ORDERED: VASCEPA1 G1 PO (07:40)
[2023-09-24 07:54] LABS: BASOPHILS ABSOLUTE AUTO 0.08 K/mm3 (0.00-0.23); BASOPHILS PERCENT AUTO 1 % (0-2); EOSINOPHILS ABSOLUTE AUTO 0.34 K/mm3 (0.00-0.68); EOSINOPHILS PERCENT AUTO 4 % (0-6); Hematocrit 39.6 % (37.0-53.0); Hemoglobin 13.2 g/dL (13.5-17.5); IMMATURE GRAN ABSOLUTE AUTO 0.03 K/mm3 (0.00-0.10); IMMATURE GRAN PERCENT AUTO 0 % (0-1); LYMPHOCYTES ABSOLUTE AUTO 2.76 K/mm3 (0.84-5.20); LYMPHOCYTES PERCENT AUTO 36 % (21-46); MONOCYTES ABSOLUTE AUTO 0.63 K/mm3 (0.16-1.47); MONOCYTES PERCENT AUTO 8 % (4-13); Mean Corpuscular HGB 28.3 pg (26.0-34.0); Mean Corpuscular HGB Conc 33.3 g/dL (31.5-36.5); Mean Corpuscular Volume 85 fL (80-100); Mean Platelet Volume 10.9 fL (9.1-12.4); NEUTROPHILS ABSOLUTE AUTO 3.86 K/mm3 (1.96-9.15); NEUTROPHILS PERCENT AUTO 50 % (41-73); Platelet Count 223 K/mm3 (150-400); RDW Coefficient Variation 13.6 % (11.7-14.2); RDW Standard Deviation 42.2 fL (35.1-46.3); Red Blood Cell Count 4.66 M/mm3 (4.30-5.90)
[2023-09-24] MEDS ORDERED: BIVALIRUDIN IV SCH (07:55)
[2023-09-24] MEDS ORDERED: Bivalirudin 250 MG in NS 50 ML IV SCH (08:05)
[2023-09-24 08:12] LABS: Bun/Creatinine Ratio 16.2 (12.0-20.0); Calcium, Blood 9.3 mg/dL (8.5-10.1); Creatinine, Blood 1.36 mg/dL (0.60-1.20); Potassium, Blood 4.1 mmol/L (3.5-5.5)
[2023-09-24] MEDS ORDERED: Midazolam HCl 1MG / ML 2ML Vial ONE (08:13)
[2023-09-24] MEDS ORDERED: FentaNYL Citrate 50 MCG/ML 2 ML Injection ONE (08:13)
[2023-09-24 08:15] LABS: International Normalized Ratio 1.01; Prothrombin Time Results 10.8 Sec (9.7-11.5)
--- NOTE | 2023-09-24 09:51 | NUR ---
PT RETURNED TO RECOVERY ROOM IN RECLINER. LEFT RADIAL TR BAND SITE SOFT WITH NO HEMATOMA, NO BLEEDING AND LEFT WRIST BOARD IN PLACE. PT DENIES CHEST PAIN. PT DRINKING COFFEE. CALL LIGHT IN REACH.
--- NOTE | 2023-09-24 10:09 | NUR ---
NO CHANGES TO L RAD TR BAND SITE. PT EATING BREAKFAST.
--- NOTE | 2023-09-24 10:19 | NUR ---
DR ARIAS IN ROOM TO SEE PT.
[2023-09-24] MEDS ORDERED: AMLO5 PO (10:21)
--- NOTE | 2023-09-24 11:11 | NUR ---
Additional refreshments provided. Pt remains up in recliner, vss.Initial deflation of TR band, 3cc of air removed from band at this time. No oozing no hematoma at this time.
--- NOTE | 2023-09-24 11:23 | NUR ---
All air removed from band at this time. no oozing or hematoma at this time.
--- NOTE | 2023-09-24 11:43 | NUR ---
LEFT RADIAL DEFLATED TR SITE SOFT WITH NO HEMATOMA, NO PULSATILE BLEEDING AND WRIST BOARD IN PLACE. DISCHARGE INSTRUCTIONS REVIEWED ALL QUESTIONS ANSWERED.
--- NOTE | 2023-09-24 12:15 | NUR ---
NO CHANGES TO DEFLATED LEFT TR BAND SITE. L DEFLATED TR BAND REMOVED AND POLYMEM PLACED OVER L RAD SITE; L WRIST BAORD IN PLACE. 20 G IV DISCONTINUED FROM RIGHT FOREARM WITH INTACT CANNULA. PT ESCORTED OUT VIA WHEELCHAIR ESCORT.
== END 2023-09-24 12:15 | disposition home or self-care (01) ==
LOC: MHTC 06:42
PROVIDERS: Internal Medicine Cardiovascular Disease
DX: I25.810 Atherosclerosis of coronary artery bypass graft(s) without angina pectoris (principal); I48.0 Paroxysmal atrial fibrillation; E11.22 Type 2 diabetes mellitus with diabetic chronic kidney disease; I12.9 Hypertensive chronic kidney disease with stage 1 through stage 4 chronic kidney disease, or unspecified chronic kidney disease; N18.9 Chronic kidney disease, unspecified; E78.5 Hyperlipidemia, unspecified; Z01.810 Encounter for preprocedural cardiovascular examination; Z95.1 Presence of aortocoronary bypass graft; Z88.8 Allergy status to other drugs, medicaments and biological substances; Z79.84 Long term (current) use of oral hypoglycemic drugs
CPT/HCPCS: 76937; 80048; 85025; 85610; 93459; 93571; 99152; 99153; A9270; C1769; C1887; C1894; J0583; J2250; J3010; J7030; J7050; Q9967

== ENCOUNTER 2024-03-16 06:34 | Day surgery (SDC) | payer OTHER ==
[~2024-03-16] VITALS: Ht 171 cm; Wt 100.6 kg
[~2024-03-16 06:34] MED LIST changes: +AMLO5 PO; +NS 500 ML IV SCH; +VASCEPA1 G1 PO
[2024-03-16 07:16] VITALS: BP 169/88
--- NOTE | 2024-03-16 07:32 | NUR ---
History, Chart, Medications and Allergies reviewed before start of procedure. Patient up to Ambulate independently. Gait steady. Pre-Op teaching done. Pt verbalizes understanding. Patient confirms NPO status and agrees with scheduled surgery. Patient States Post-Procedure ride home has been arranged.
[2024-03-16] MEDS ORDERED: propofoL 40 ML IV ONE (07:39)
[2024-03-16 08:20] VITALS: BP 123/80
--- NOTE | 2024-03-16 08:39 | NUR ---
Discharge instructions reviewed with patient. Patient verbalizes understanding. Copy given to patient to take home. Patient States Post-Procedure ride home has been arranged. Discharged via wheelchair to private car for ride home.
[2024-03-16] MEDS ORDERED: NS 500 ML IV ONE (09:00)
--- NOTE | 2024-03-17 12:07 | NUR ---
03/17/24 1207 Nathan Mancuso History, Chart, Medications and Allergies reviewed before start of procedure.MONITOR INTACT WITH CONTINUOUS PULSE OXIMETRY, CONTINUOUS END TITAL CO2, AND INTERMITTENT BLOOD PRESSURE.3-LEAD EKG REVIEWED WITH PHYSICIAN PRIOR TO START OF PROCEDURE.O2 VIA POM INTACT THROUGHOUT SEDATION/PROCEDURE.See Anesthesia record.
== END 2024-03-16 08:40 | disposition home or self-care (01) ==
LOC: ORSCMMR 06:34 → ORD 08:00 → ORSCMMR 08:40
PROVIDERS: Internal Medicine Gastroenterology
PROC: 0DBN8ZX Excision of Sigmoid Colon, Via Natural or Artificial Opening Endoscopic, Diagnostic (ICD-10-PCS; principal; 2024-03-16 08:00)
DX: Z12.11 Encounter for screening for malignant neoplasm of colon (principal); D12.5 Benign neoplasm of sigmoid colon; I25.2 Old myocardial infarction; K57.30 Diverticulosis of large intestine without perforation or abscess without bleeding; K64.4 Residual hemorrhoidal skin tags; I25.10 Atherosclerotic heart disease of native coronary artery without angina pectoris; I48.91 Unspecified atrial fibrillation; K21.9 Gastro-esophageal reflux disease without esophagitis; E78.00 Pure hypercholesterolemia, unspecified; E11.9 Type 2 diabetes mellitus without complications; I10 Essential (primary) hypertension; E66.9 Obesity, unspecified; Z68.34 Body mass index [BMI] 34.0-34.9, adult; Z79.01 Long term (current) use of anticoagulants; Z79.84 Long term (current) use of oral hypoglycemic drugs; Z79.899 Other long term (current) drug therapy
CPT/HCPCS: 82947; 88305; J2704; J7040

== ENCOUNTER → 2025-03-14 | Outpatient (CLI) | payer OTHER ==
[~2025-03-14] MED LIST changes: -NS 500 ML IV SCH
[2025-03-14 18:18] LABS: Prostate Specific Antigen 0.961 ng/mL (0.000-4.000)
== END ==
LOC: LAB SHORT 17:25 → LAB 17:25
PROVIDERS: Hospitalist
DX: Z12.5 Encounter for screening for malignant neoplasm of prostate (principal)
CPT/HCPCS: G0103